=== PATIENT | male | born 1975 | race Hispanic/Latino ===

== ENCOUNTER 2017-12-05 22:01 | Inpatient (IN) | payer OTHER ==
[~2017-12-05] VITALS: Ht 180.3 cm; Wt 79.7 kg
[2017-12-05] MEDS ORDERED: HYDROMORPHONE 1MG/1ML INJ IV STA (22:24)
[2017-12-05] MEDS ORDERED: SODIUM CHLORIDE 0.9% 1000ML 1,000 ML IV STA (22:24)
[2017-12-05] MEDS ORDERED: ONDANSETRON HCL INJ 2 MG/ML VIAL IV STA (22:24)
[2017-12-05] MEDS ORDERED: PANTOPRAZOLE 40 MG 10ML VIAL IV STA (22:24)
[2017-12-05 22:38] LABS: BASOPHILS % 0.3 % (0.0-1.0); EOSINOPHILS # (AUTO) 0.1 (0.0-0.4); EOSINOPHILS % 1.1 % (0.0-6.0); HEMATOCRIT 46.4 % (38.2-49.6); HEMOGLOBIN 16.3 g/dL (14.0-18.0); LYMPHOCYTES # (AUTO) 1.8 (1.0-3.2); LYMPHOCYTES % 18.6 % (18.0-39.1); MEAN CORPUSCULAR HEMOGLOBIN 30.7 pg (28-32); MEAN CORPUSCULAR HGB CONC 35.1 g/dL (31-35); MEAN CORPUSCULAR VOLUME 87.4 fL (81-99); MONOCYTES # (AUTO) 0.7 (0.2-0.8); MONOCYTES % 7.5 % (4.4-11.3); NEUTROPHILS # (AUTO) 6.9 (2.1-6.9); PLATELET COUNT 215 x10e3/uL (140-360); RED BLOOD COUNT 5.31 x10e6/uL (4.3-5.7); RED CELL DISTRIBUTION WIDTH 12.3 % (11.7-14.4)
[2017-12-05 22:42] LABS: INR 1.16; PARTIAL THROMBOPLASTIN TIME 26.6 seconds (23.8-35.5); PROTHROMBIN TIME 13.9 seconds (11.9-14.5)
[2017-12-05 22:53] LABS: ALANINE AMINOTRANSFERASE 23 IU/L (0-55); ALBUMIN 4.6 g/dL (3.5-5.0); ALBUMIN/GLOBULIN RATIO 1.5 (0.8-2.0); ALKALINE PHOSPHATASE 67 IU/L (40-150); AMYLASE 94 U/L (25-125); ANION GAP 14.6 mmol/L (8-16); BLOOD UREA NITROGEN 15 mg/dL (7-26); BUN/CREATININE RATIO 14 (6-25); CALCIUM 9.6 mg/dL (8.4-10.2); CARBON DIOXIDE 25 mmol/L (22-29); CHLORIDE 102 mmol/L (98-107); CREATINE KINASE 200 IU/L (30-200); EST GLOMERULAR FILTRATION RATE > 60 ML/MIN (60-); GLUCOSE 110 mg/dL (74-118); LIPASE 22 U/L (8-78); MAGNESIUM 2.1 MG/DL (1.3-2.1); POTASSIUM 3.6 mmol/L (3.5-5.1); SODIUM 138 mmol/L (136-145)
--- NOTE | 2017-12-05 23:24 | Diagnostic Imaging Report ---
CHEST SINGLE (PORTABLE), 12/05/2017 10:24 PM Technique: CHEST SINGLE (PORTABLE) Comparison: 10/10/2008 Clinical history: Upper abdominal pain Findings: Normal cardiomediastinal silhouette for technique. No consolidation or edema. No pleural effusion or pneumothorax; linear density at the lung apices favored to be artifactual. Left axillary clips are noted. No free air in the upper abdomen. Impression: 1. Lines/Tubes: None 2. No acute abnormality. Signed by: Dr Mara Berman MD on 12/05/2017 11:21 PM
[2017-12-05] MEDS ORDERED: IOPAMIDOL 370 MG/ML 200 ML INFUS..BTL INJ ONE (23:54)
[2017-12-05] MEDS ORDERED: SODIUM CHLORIDE 0.9% 50ML 50 ML ONE (23:54)
[2017-12-06] VITALS (8 sets, daily range): BP systolic 110–166; BP diastolic 72–76
--- NOTE | 2017-12-06 00:12 | Diagnostic Imaging Report ---
EXAM: CT ABDOMEN/PELVIS W DATE: 12/05/2017 10:24 PM INDICATION: \S\UPPER ABD PAIN, LUQ>TOMASZ>RUQ COMPARISON: None 10/23/2008 TECHNIQUE: The abdomen and pelvis were scanned using a multidetector helical scanner. Coronal and sagittal reformations were obtained. Routine protocol performed. IV Contrast: 100 ml Isovue 300/370 FINDINGS: LOWER THORAX: Mild bibasilar atelectasis. LIVER/BILIARY: No masses. Mild extrahepatic biliary ductal dilation status post cholecystectomy. GALLBLADDER: Surgically absent SPLEEN: Unremarkable PANCREAS: Unremarkable ADRENALS: No nodules KIDNEYS: Symmetric perfusion. No enhancing masses. No hydronephrosis. GI TRACT: Mild dilated small bowel loops in the upper abdomen with intraluminal fecalization of contents and kinking/acute angulation of the bowel at transition in the right central abdomen to decompressed loops. Mild adjacent inflammatory changes and trace fluid. Normal appendix and scattered diverticula are noted. VESSELS: Unremarkable PERITONEUM/RETROPERITONEUM: No free air LYMPH NODES: No lymphadenopathy REPRODUCTIVE ORGANS/BLADDER: Unremarkable SOFT TISSUES: Unremarkable BONES: No suspicious bone lesions. IMPRESSION: Small bowel obstruction with transition point in the right central abdomen, likely related to adhesive disease. Signed by: Dr Mara Berman MD on 12/06/2017 12:08 AM
[2017-12-06] MEDS ORDERED: SODIUM CHLORIDE 0.9% 1000ML 1,000 ML IV STA (01:04)
[2017-12-06] MEDS ORDERED: ONDANSETRON HCL INJ 2 MG/ML VIAL IV STA (01:04)
[2017-12-06] MEDS ORDERED: HYDROMORPHONE 1MG/1ML INJ IV STA (01:04)
[2017-12-06] MEDS ORDERED: BENZOCAINE/TETRACAINE/BUTAMBEN AERO SPRAY 56 GM CAN TOP ONE (01:15)
[2017-12-06] MEDS ORDERED: LIDOCAINE VISC 2% SOLN 15 ML UDC ONE (01:46)
[2017-12-06] MEDS ORDERED: SODIUM CHLORIDE 0.9% 1000ML 1,000 ML IV SCH (02:17)
[2017-12-06] MEDS ORDERED: HYDROMORPHONE 1MG/1ML INJ IV PRN (02:30)
[2017-12-06] MEDS: PIPER-TAZ 3.375 GM 50 ML IV SCH ×4 (03:00→20:29)
[2017-12-06 06:39] LABS: BILIRUBIN,URINE NEGATIVE (NEGATIVE); CLARITY,URINE CLEAR (CLEAR); COLOR,URINE YELLOW (YELLOW); KETONES,URINE NEGATIVE (NEGATIVE); LEUKOCYTE ESTERASE ,URINE NEGATIVE (NEGATIVE); NITRITE,URINE NEGATIVE (NEGATIVE); PROTEIN,URINE DIPSTICK NEGATIVE (NEGATIVE); URINE UROBILINOGEN 0.2 mg/dL (0.2 - 1)
[2017-12-06 07:04] LABS: EPITHELIAL CELLS,URINE RARE /LPF; RBC,URINE 0-5 /HPF (0-5); WBC,URINE (MAN) 0-5 /HPF (0-5)
[2017-12-06] MEDS ORDERED: CHLORASEPTIC SPRAY 177 ML BTL MM PRN (07:30)
[2017-12-06] MEDS: PANTOPRAZOLE 40 MG 10ML VIAL IV SCH ×2 (08:30→18:26)
[2017-12-06] MEDS: ONDANSETRON HCL INJ 2 MG/ML VIAL IV PRN ×3 (08:30→18:27)
[2017-12-06] MEDS: DEXTROSE 5%/0.45% SOD CHL 1,000 ML IV SCH (08:54)
[2017-12-06 10:58] LABS: CREATINE KINASE 136 IU/L (30-200)
[2017-12-06] MEDS: FENTANYL 25 MCG/HR PATCH TOP SCH (11:17)
[2017-12-06] MEDS: MEPERIDINE HCL INJ 50 MG/ML INJ IV PRN ×2 (13:20→18:27)
--- NOTE | 2017-12-06 14:12 | Diagnostic Imaging Report ---
EXAM: ABDOMEN-1VIEW (KUB) DATE: 12/06/2017 12:36 PM INDICATION: \S\small bowel obstruction \S\Y COMPARISON: CT 12/05/2017 FINDINGS: NG tube present with tip in third portion duodenum. Gas-filled loops of bowel persist, poorly evaluated given supine positioning. Maximal diameter 45 mm left mid abdomen. IMPRESSION: NG tube as above. Persistent dilated small bowel. Signed by: Dr. Genaro Kaur MD on 12/06/2017 2:08 PM
[2017-12-06 18:56] LABS: CREATINE KINASE 112 IU/L (30-200)
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
[2017-12-06] MEDS ORDERED: PROMETHAZINE 25MG/ NS 50ML (IV) IV PRN (19:00)
[2017-12-07] VITALS: BP 129/78
[2017-12-07] MEDS: DEXTROSE 5%/0.45% SOD CHL 1,000 ML IV SCH ×2 (02:20→05:58)
[2017-12-07] MEDS: MEPERIDINE HCL INJ 50 MG/ML INJ IV PRN ×4 (03:46→22:05)
[2017-12-07 04:00] VITALS: BP 117/64
[2017-12-07] MEDS: PIPER-TAZ 3.375 GM 50 ML IV SCH ×4 (04:00→21:24)
[2017-12-07 04:18] LABS: BASOPHILS % 0.2 % (0.0-1.0); EOSINOPHILS # (AUTO) 0.1 (0.0-0.4); EOSINOPHILS % 0.8 % (0.0-6.0); HEMATOCRIT 46.6 % (38.2-49.6); HEMOGLOBIN 16.1 g/dL (14.0-18.0); LYMPHOCYTES # (AUTO) 1.2 (1.0-3.2); MEAN CORPUSCULAR HEMOGLOBIN 30.7 pg (28-32); MEAN CORPUSCULAR HGB CONC 34.5 g/dL (31-35); MEAN CORPUSCULAR VOLUME 88.9 fL (81-99); MONOCYTES # (AUTO) 0.8 (0.2-0.8); MONOCYTES % 8.8 % (4.4-11.3); NEUTROPHILS # (AUTO) 6.6 (2.1-6.9); PLATELET COUNT 181 x10e3/uL (140-360); RED BLOOD COUNT 5.24 x10e6/uL (4.3-5.7); RED CELL DISTRIBUTION WIDTH 12.4 % (11.7-14.4)
[2017-12-07 04:43] LABS: CHOL/HDL RATIO 4.3 (3.9-4.7); MAGNESIUM 1.8 MG/DL (1.3-2.1)
[2017-12-07 04:45] LABS: ALANINE AMINOTRANSFERASE 26 IU/L (0-55); ALBUMIN 3.9 g/dL (3.5-5.0); ALBUMIN/GLOBULIN RATIO 1.3 (0.8-2.0); ALKALINE PHOSPHATASE 56 IU/L (40-150); ANION GAP 12.5 mmol/L (8-16); BLOOD UREA NITROGEN 12 mg/dL (7-26); BUN/CREATININE RATIO 13 (6-25); CALCIUM 8.9 mg/dL (8.4-10.2); CARBON DIOXIDE 25 mmol/L (22-29); CHLORIDE 104 mmol/L (98-107); CREATININE, SERUM 0.89 mg/dL (0.72-1.25); EST GLOMERULAR FILTRATION RATE > 60 ML/MIN (60-); GLUCOSE 130 mg/dL (74-118); POTASSIUM 3.5 mmol/L (3.5-5.1); SODIUM 138 mmol/L (136-145)
[2017-12-07 04:46] LABS: B-TYPE NATRIURETIC PEPTIDE2 34.4 pg/mL (0-100)
[2017-12-07 05:05] LABS: FREE T4 (FREE THYROXINE) 0.84 ng/dL (0.9-1.8); THYROID STIMULATING HORMONE 0.837 uIU/mL (0.350-4.940)
--- NOTE | 2017-12-07 06:39 | Diagnostic Imaging Report ---
ABDOMEN-1VIEW (KUB) Clinical history: Small bowel obstruction Technique: AP view abdomen Comparison: Previous day Findings: Hemidiaphragms and inferior pelvis are partially excluded from view. Cholecystectomy. NG tube terminates over the third portion of the duodenum. Persistent dilated small bowel up to 4.5 cm. Mild gas is noted in the colon. Impression: NG tube tube, as above. Persistent findings of small bowel obstruction. Signed by: Dr Mara Berman MD on 12/07/2017 6:35 AM
[2017-12-07] MEDS: PANTOPRAZOLE 40 MG 10ML VIAL IV SCH ×2 (09:55→16:49)
[2017-12-07 10:00] VITALS: BP 117/64
[2017-12-07] MEDS ORDERED: DIPHENHYDRAMINE HCL 30 GM TUBE TOP PRN (14:15)
[2017-12-07 16:41] VITALS: BP 125/74
[2017-12-07 20:00] VITALS: BP 115/75
[2017-12-07 20:05] VITALS: BP 115/75
[2017-12-08] VITALS (7 sets, daily range): BP systolic 115–122; BP diastolic 61–73
[2017-12-08] MEDS: MEPERIDINE HCL INJ 50 MG/ML INJ IV PRN ×5 (03:38→22:26)
[2017-12-08 03:58] LABS: BASOPHILS % 0.2 % (0.0-1.0); EOSINOPHILS # (AUTO) 0.1 (0.0-0.4); EOSINOPHILS % 1.9 % (0.0-6.0); HEMATOCRIT 40.6 % (38.2-49.6); HEMOGLOBIN 14.1 g/dL (14.0-18.0); LYMPHOCYTES # (AUTO) 1.2 (1.0-3.2); LYMPHOCYTES % 23.1 % (18.0-39.1); MEAN CORPUSCULAR HGB CONC 34.7 g/dL (31-35); MEAN CORPUSCULAR VOLUME 89.2 fL (81-99); MONOCYTES # (AUTO) 0.5 (0.2-0.8); MONOCYTES % 10.5 % (4.4-11.3); NEUTROPHILS # (AUTO) 3.3 (2.1-6.9); NEUTROPHILS % 63.9 % (38.7-80.0); PLATELET COUNT 142 x10e3/uL (140-360); RED BLOOD COUNT 4.55 x10e6/uL (4.3-5.7); RED CELL DISTRIBUTION WIDTH 12.3 % (11.7-14.4)
[2017-12-08] MEDS: PIPER-TAZ 3.375 GM 50 ML IV SCH ×4 (04:05→19:59)
[2017-12-08 04:15] LABS: ANION GAP 9.5 mmol/L (8-16); BLOOD UREA NITROGEN 11 mg/dL (7-26); BUN/CREATININE RATIO 11 (6-25); CALCIUM 8.6 mg/dL (8.4-10.2); CARBON DIOXIDE 29 mmol/L (22-29); CHLORIDE 102 mmol/L (98-107); CREATININE, SERUM 0.97 mg/dL (0.72-1.25); EST GLOMERULAR FILTRATION RATE > 60 ML/MIN (60-); GLUCOSE 92 mg/dL (74-118); MAGNESIUM 1.9 MG/DL (1.3-2.1); POTASSIUM 3.5 mmol/L (3.5-5.1); SODIUM 137 mmol/L (136-145)
[2017-12-08] MEDS: PANTOPRAZOLE 40 MG 10ML VIAL IV SCH ×2 (08:15→15:56)
--- NOTE | 2017-12-08 09:58 | Diagnostic Imaging Report ---
PROCEDURE:X-RAY ABDOMEN - KUB COMPARISON:[facility], DX, ABDOMEN-1VIEW (KUB), 12/07/2017, 6:10. INDICATIONS:SMALL BOWEL OBSTRUCTION FINDINGS: NG tube partially visualized with tip overlying the region of the duodenum. Previously visualized dilated small bowel loops are no longer evident. There are no masses or abnormal calcifications. There is no evidence of free air. No acute osseous abnormalities are present. CONCLUSION: No acute abdominal abnormality. Yunier Richmond D.O. Dictated by: Yunier Richmond D.O. on 12/08/2017 at 10:01 Electronically approved by: Yunier Richmond D.O. on 12/08/2017 at 10:01
[2017-12-08] MEDS ORDERED: MEPERIDINE HCL INJ 25 MG/ML VIAL ONE ×2 (13:47→18:10)
[2017-12-08] MEDS: DEXTROSE 5%/0.45% SOD CHL 1,000 ML IV SCH ×2 (19:45→23:39)
[2017-12-09] VITALS: BP 114/56
[2017-12-09] MEDS: PIPER-TAZ 3.375 GM 50 ML IV SCH ×2 (02:50→08:00)
[2017-12-09 04:00] VITALS: BP 112/63
[2017-12-09 04:00] LABS: ANION GAP 14.8 mmol/L (8-16); BLOOD UREA NITROGEN 7 mg/dL (7-26); BUN/CREATININE RATIO 8 (6-25); CALCIUM 8.8 mg/dL (8.4-10.2); CARBON DIOXIDE 19 mmol/L (22-29); CHLORIDE 107 mmol/L (98-107); CREATININE, SERUM 0.83 mg/dL (0.72-1.25); EST GLOMERULAR FILTRATION RATE > 60 ML/MIN (60-); GLUCOSE 87 mg/dL (74-118); MAGNESIUM 2.3 MG/DL (1.3-2.1); POTASSIUM 3.8 mmol/L (3.5-5.1); SODIUM 137 mmol/L (136-145)
[2017-12-09 07:50] VITALS: BP 105/66
[2017-12-09] MEDS: PANTOPRAZOLE 40 MG 10ML VIAL IV SCH (07:50)
[2017-12-09 07:54] VITALS: BP 105/66
[2017-12-09 08:08] LABS: BASOPHILS % 0.4 % (0.0-1.0); EOSINOPHILS # (AUTO) 0.1 (0.0-0.4); EOSINOPHILS % 2.5 % (0.0-6.0); HEMATOCRIT 40.1 % (38.2-49.6); HEMOGLOBIN 13.8 g/dL (14.0-18.0); LYMPHOCYTES % 21.5 % (18.0-39.1); MEAN CORPUSCULAR HEMOGLOBIN 30.7 pg (28-32); MEAN CORPUSCULAR HGB CONC 34.4 g/dL (31-35); MEAN CORPUSCULAR VOLUME 89.1 fL (81-99); MONOCYTES # (AUTO) 0.6 (0.2-0.8); MONOCYTES % 11.7 % (4.4-11.3); NEUTROPHILS # (AUTO) 3.1 (2.1-6.9); NEUTROPHILS % 63.7 % (38.7-80.0); PLATELET COUNT 157 x10e3/uL (140-360); RED CELL DISTRIBUTION WIDTH 12.2 % (11.7-14.4)
[2017-12-09] MEDS: FENTANYL 25 MCG/HR PATCH TOP SCH (08:43)
[2017-12-09] MEDS ORDERED: BUTRANS1 EAC1 (09:52)
[2017-12-09] MEDS ORDERED: TYLENOL WITH C1 EACH PO (09:52)
--- NOTE | 2017-12-09 16:27 | Discharge Summary ---
ADMISSION DIAGNOSES 1. Small bowel obstruction. 2. Gastroesophageal reflux disease. 3. Bradycardia. DISCHARGE DIAGNOSES 1. Small bowel obstruction. 2. Gastroesophageal reflux disease. 3. Bradycardia. 4. Hypermagnesemia. HISTORY: The patient's only medical history is GERD. Surgical history of cholecystectomy, abdominal surgery, right knee surgery, right heel surgery and repair of his spleen. HOSPITAL COURSE: A 42-year-old male complains of left-sided abdominal cramping that began around 6 p.m. last night. He denies nausea, vomiting, diarrhea and fever. His last bowel movement was last night, which was diarrhea. He is not passing flatus currently. He had similar episode in the past. He uses Benadryl to help the cramping. On admission, the patient had a chest x-ray which showed no acute abnormality. He had a CT of the abdomen that showed small bowel obstruction with transition point in the right central abdomen. Surgery was consulted who recommended NG tube and daily x-rays. On 12/08/17, the patient had an x-ray that showed that the small bowel obstruction had resolved. The patient tolerated diet, passing flatus, no bowel movement yet. The patient is pain free. On the day of discharge, sodium 137, potassium 3.8, creatinine 0.83, GFR of over 60. WBC 4.8. Hemoglobin 13.8. Hematocrit 40.1. The patient afebrile. Vital signs stable. The patient agrees to discharge plan and ready to go home. Dictated by: Daniela Carrillo NP BRIGHT REYNOSO MD Job#: [id number]
== END 2017-12-09 10:40 | disposition home or self-care (01) | DRG 390 ==
LOC: ER 22:01 → ERHOLD 12-06 02:30 → MED/SURG 12-06 03:12
PROVIDERS: ADMIT Internal Medicine; ATTEND Internal Medicine
DX: K56.50 Intestinal adhesions [bands], unspecified as to partial versus complete obstruction (principal); K21.9 Gastro-esophageal reflux disease without esophagitis; R00.1 Bradycardia, unspecified; E83.41 Hypermagnesemia; F17.200 Nicotine dependence, unspecified, uncomplicated; Z88.5 Allergy status to narcotic agent
CPT/HCPCS: 36415; 71045; 74018; 74177; 80048; 80053; 80061; 81001; 82150; 82550; 82553; 83036; 83690; 83735; 83880; 84439; 84443; 84484; 85025; 85610; 85730; 87086; 93005; 99284; J1170; J2175; J2405; J2543; J2550; J7030; Q9967

== ENCOUNTER → 2018-03-20 | Day surgery (SDC) | payer OTHER ==
[~2018-03-20] MED LIST: BUTRANS1 EAC1; FENTANYL CITRATE/PF 100MCG/2 ML INJ ONE; MIDAZOLAM HCL 2 MG/2 ML VIAL ONE; NEXIUM40 MG; PROPOFOL IV EMULSION 10 MG/ML 50 ML VIAL ONE; TYLENOL WITH C1 EACH PO; ULTRAM50 MG PO
[2018-03-20 09:55] VITALS: BP 112/77
--- NOTE | 2018-03-20 10:13 | Operative Report ---
DATE OF PROCEDURE: March 20, 2018 REFERRING PHYSICIAN: Dr. Tommy Rojas PROCEDURE PERFORMED: Esophagogastroduodenoscopy with biopsies. INDICATIONS FOR PROCEDURE: Upper abdominal pain and bloating. MEDICATION: Patient was done under MAC. Please see anesthesiologist's note. PROCEDURE: With the patient in the left lateral decubitus position, the flexible fiberoptic Olympus gastroscope was introduced into the esophagus under direct visualization without any difficulty. There was some patchy erythema noted in the distal esophagus. The scope was then advanced with ease into the stomach traversing a small sliding hiatal hernia. Mucosa overlying the antrum and the body revealed some diffuse erythema and low-grade edema, and biopsies were obtained and sent to stain for H. pylori. Pylorus appeared to be of normal contour and shape. It was intubated with ease. The scope was advanced all the way to the 2nd portion of the duodenum. The scope was then withdrawn slowly. Mucosa overlying the proximal 2nd portion and the duodenal bulb appeared to be within normal limits. The scope was then withdrawn back into the stomach and retroflexed. Mucosa overlying the fundus appeared to be within normal limits. There appears to be at failed Casper fundoplication. The scope was then straightened out. It was subsequently withdrawn. Patient tolerated the procedure well. IMPRESSION 1. Mild distal esophagitis. 2. Small sliding hiatal hernia. 3. Loose failed Casper fundoplication. 4. Gastritis, biopsied. Biopsies sent to stain for Helicobacter pylori. PLAN Follow up histology. Continue PPI therapy. Start Carafate 1 g p.o. a.c. t.i.d. and at bedtime. Job#: [id number] RI cc:TOMMY ROJAS MD
== END | disposition home or self-care (01) ==
LOC: OR 06:59
PROVIDERS: ATTEND Internal Medicine Gastroenterology
DX: K21.9 Gastro-esophageal reflux disease without esophagitis (principal); K91.89 Other postprocedural complications and disorders of digestive system; K29.50 Unspecified chronic gastritis without bleeding; K20.9 Esophagitis, unspecified; K44.9 Diaphragmatic hernia without obstruction or gangrene; R00.1 Bradycardia, unspecified; F17.210 Nicotine dependence, cigarettes, uncomplicated; Z01.810 Encounter for preprocedural cardiovascular examination; Z88.6 Allergy status to analgesic agent
CPT/HCPCS: 43239; 93005; J2250

== ENCOUNTER 2018-05-25 13:32 | Outpatient (RCR) | payer OTHER ==
[~2018-05-25 13:32] MED LIST changes: -FENTANYL CITRATE/PF 100MCG/2 ML INJ ONE; -MIDAZOLAM HCL 2 MG/2 ML VIAL ONE; -PROPOFOL IV EMULSION 10 MG/ML 50 ML VIAL ONE
== END 2018-06-15 ==
LOC: PT 13:32
PROVIDERS: ATTEND Family Medicine
DX: M17.11 Unilateral primary osteoarthritis, right knee (principal); M54.5 Low back pain; M25.571 Pain in right ankle and joints of right foot
CPT/HCPCS: 97750; G8978; G8979; G8980